=== PATIENT | male | born 1960 | race Caucasian/White ===

== ENCOUNTER 2022-02-10 06:23 | Day surgery (SDC) | payer OTHER ==
[2022-02-10 06:57] VITALS: RESP 16; TEMP 96.9
[2022-02-10] MEDS: LACTATED RINGERS 1,000 ML IV SCH ×2 (07:07→07:35)
[2022-02-10] MEDS ORDERED: PROPOFOL 10 MG/ML 20 ML VIAL IV ONE (07:39)
--- NOTE | 2022-02-10 08:07 | P.PCN ---
Date of Procedure: 02/10/22 Procedure(s) Performed: BRIEF HISTORY: Patient is a 61-year-old pleasant white male scheduled for an elective colonoscopy as a part of a lesion of prior history of colon polyps. Last colonoscopy was 7 years ago and was noted to have a serrated adenoma. PROCEDURE PERFORMED: Colonoscopy. PREOPERATIVE DIAGNOSIS: \History of colon polyps. IV sedation per Anesthesia. PROCEDURE: After informed consent was obtained, the patient, was brought into the endoscopy unit. IV sedation was administered by Anesthesia under continuous monitoring. Digital rectal examination was normal. Initially the Olympus CF-160 flexible video colonoscope was then inserted in the rectum, gradually advanced into the cecum without any difficulty. Careful examination was performed as the scope was gradually being withdrawn. Ileocecal valve and the appendiceal orifice were visualized and appeared normal. Prep was excellent. Mucosa of the cecum, ascending colon, transverse colon, descending colon, sigmoid colon, and rectum appeared normal. Retroflexion was performed in the rectum and no lesions were seen. The patient tolerated the procedure well. IMPRESSION: Normal-appearing colon from rectum to cecum with no evidence of colorectal neoplasia. RECOMMENDATIONS: Findings of this examination were discussed with the patient well as his family. He was advised to have a repeat colonoscopy in 5 years from now because of Prilosec.
[2022-02-10 08:26] VITALS: BP 126/77; PULSE 81
== END 2022-02-10 08:42 | disposition home or self-care (01) ==
LOC: ORWHC2ENDO 06:23
PROVIDERS: ATTEND Internal Medicine Gastroenterology
DX: Z12.11 Encounter for screening for malignant neoplasm of colon (principal); I10 Essential (primary) hypertension; Z86.010 Personal history of colon polyps; Z79.899 Other long term (current) drug therapy
CPT/HCPCS: 45378; J2704